=== PATIENT | female | born 1955 | race Caucasian/White ===

== ENCOUNTER 2023-11-24 06:31 | Inpatient (IN) ==
[2023-11-24] MEDS ORDERED: IOPAMIDOL 100 ML BOTTLE IV ONE (06:32)
[2023-11-24] MEDS ORDERED: HYDROmorphone 1 MG/ML SYRINGE IV ONE (06:48)
[2023-11-24] MEDS ORDERED: ONDANSETRON 4 MG/2 ML VIAL IV ONE ×2 (06:48→08:22)
[2023-11-24] MEDS ORDERED: 0.9 % SODIUM CHLORIDE 1,000 ML IV ONE (06:48)
[2023-11-24 07:57] LABS: Basophils # (Auto) 0.01 K/mcL (0.00-0.30); Basophils % (Auto) 0.1 % (0.0-2.0); Eosinophils # (Auto) 0.07 K/mcL (0.00-0.70); Eosinophils % (Auto) 0.6 % (0.0-7.0); Hematocrit 39.5 % (34.1-44.9); Hemoglobin 13.2 g/dL (11.2-15.7); Lymphocytes # (Auto) 1.04 K/mcL (1.50-4.80); Lymphocytes % (Auto) 8.8 % (15.5-49.0); Mean Cell Volume 92.9 fL (80.0-100.0); Mean Corpuscular HGB Conc 33.4 g/dL (31.0-36.0); Mean Platelet Volume 10.2 fL (8.8-12.5); Monocytes # (Auto) 0.76 K/mcL (0.10-0.90); Monocytes % (Auto) 6.4 % (1.0-12.0); Neutrophils % (Auto) 83.8 % (38.0-78.0); Platelet Count 237 K/mcL (140-440); RBC 4.25 M/mcL (3.59-5.38); WBC 11.9 K/mcL (4.5-11.0)
[2023-11-24 08:05] LABS: ALT/SGPT 18 U/L (<40); AST/SGOT 22 U/L (<32); Albumin 3.8 gm/dL (3.2-5.2); Albumin/Globulin Ratio 1.9 (1.0-2.3); Alkaline Phosphatase 58 U/L (39-117); Bilirubin,Total 0.3 mg/dL (0.1-1.0); Blood Urea Nitrogen 26 mg/dL (8-23); Calcium 8.9 mg/dL (8.6-10.4); Carbon Dioxide 26 mmol/L (22-30); Chloride 102 mmol/L (96-108); Glomerular Filtration Rate 65; Glucose 106 mg/dL (70-105)
[2023-11-24] MEDS ORDERED: LACTATED RINGERS 1,000 ML IV ONE (09:26)
[2023-11-24] MEDS ORDERED: HYDROmorphone 0.5 MG/0.5 ML SYRINGE IV ONE ×2 (09:26→11:23)
[2023-11-24] MEDS: LACTATED RINGERS 1,000 ML IV SCH ×2 (12:42→21:50)
[2023-11-24] MEDS ORDERED: NALOXONE HCL 0.4 MG/ML VIAL IV PRN (14:27)
[2023-11-24] MEDS ORDERED: KETOROLAC 30 MG/ML VIAL IV PRN (14:27)
[2023-11-24] MEDS ORDERED: HYDROmorphone 1 MG/ML SYRINGE IV PRN (14:27)
[2023-11-24] MEDS ORDERED: ONDANSETRON 4 MG/2 ML VIAL IV PRN (14:27)
[2023-11-24] MEDS ORDERED: HYDROmorphone 2 MG TABLET PO PRN (14:27)
[2023-11-24] MEDS: 0.9 % SODIUM CHLORIDE 10 ML SYRINGE IV SCH ×2 (14:28→21:39)
[2023-11-24] MEDS: ACETAMINOPHEN 325 MG TABLET PO PRN (19:06)
[2023-11-24] MEDS ORDERED: SUMAtriptan SUCCINATE 50 MG TABLET PO SCH (19:10)
[2023-11-24] MEDS ORDERED: SENNOSIDES/DOCUSATE SODIUM 1 TAB TABLET PO SCH (21:00)
[2023-11-24] MEDS: PROPRANOLOL 40 MG TABLET PO SCH (21:00)
[2023-11-24] MEDS ORDERED: LORazepam 1 MG TABLET PO SCH (22:16)
[2023-11-24] MEDS ORDERED: LORazepam 1 MG TABLET ONE (22:19)
[2023-11-24] MEDS: SENNOSIDES 1 TABLET PO SCH (22:51)
[2023-11-25] MEDS: LACTATED RINGERS 1,000 ML IV SCH ×2 (05:52→14:01)
[2023-11-25] MEDS: 0.9 % SODIUM CHLORIDE 10 ML SYRINGE IV SCH ×3 (05:53→20:12)
[2023-11-25 06:14] LABS: Basophils # (Auto) 0.02 K/mcL (0.00-0.30); Basophils % (Auto) 0.3 % (0.0-2.0); Eosinophils # (Auto) 0.16 K/mcL (0.00-0.70); Eosinophils % (Auto) 2.6 % (0.0-7.0); Hematocrit 37.8 % (34.1-44.9); Hemoglobin 12.5 g/dL (11.2-15.7); Lymphocytes # (Auto) 1.74 K/mcL (1.50-4.80); Lymphocytes % (Auto) 27.9 % (15.5-49.0); Mean Corpuscular HGB Conc 33.1 g/dL (31.0-36.0); Mean Platelet Volume 10.1 fL (8.8-12.5); Monocytes # (Auto) 0.42 K/mcL (0.10-0.90); Monocytes % (Auto) 6.7 % (1.0-12.0); Neutrophils % (Auto) 62.3 % (38.0-78.0); Platelet Count 207 K/mcL (140-440); RBC 4.02 M/mcL (3.59-5.38); Red Cell Distribution Width 13.1 % (11.5-14.5); WBC 6.2 K/mcL (4.5-11.0)
[2023-11-25 06:58] LABS: ALT/SGPT 421 U/L (<40); AST/SGOT 291 U/L (<32); Albumin 3.2 gm/dL (3.2-5.2); Albumin/Globulin Ratio 1.9 (1.0-2.3); Alkaline Phosphatase 105 U/L (39-117); Bilirubin,Total 0.4 mg/dL (0.1-1.0); Blood Urea Nitrogen 12 mg/dL (8-23); Calcium 8.5 mg/dL (8.6-10.4); Carbon Dioxide 24 mmol/L (22-30); Chloride 106 mmol/L (96-108); Globulin 1.7 gm/dL (2.2-3.7); Glomerular Filtration Rate 74; Glucose 78 mg/dL (70-105)
[2023-11-25] MEDS: PANTOPRAZOLE 40 MG VIAL IV SCH (08:35)
[2023-11-25] MEDS: LEVOTHYROXINE 50 MCG TABLET PO SCH (08:35)
[2023-11-25] MEDS: ENOXAPARIN 40 MG/0.4 ML SYRINGE SQ SCH (08:45)
[2023-11-25] MEDS ORDERED: POLYETHYLENE GLYCOL 3350 17 GM PACKET PO PRN (10:36)
[2023-11-25] MEDS ORDERED: MAGNESIUM HYDROXIDE 30 ML ORAL.SUSP PO PRN (10:36)
[2023-11-25] MEDS: ACETAMINOPHEN 325 MG TABLET PO PRN (10:55)
[2023-11-25] MEDS: SENNOSIDES 1 TABLET PO SCH (20:12)
[2023-11-25] MEDS: PROPRANOLOL 40 MG TABLET PO SCH (20:12)
[2023-11-25] MEDS: DOCUSATE SODIUM 100 MG CAPSULE PO SCH (20:12)
[2023-11-25] MEDS ORDERED: LORazepam 1 MG TABLET ONE (20:37)
[2023-11-25] MEDS ORDERED: LORazepam 1 MG TABLET PO PRN (22:39)
[2023-11-26] MEDS: LACTATED RINGERS 1,000 ML IV SCH (03:31)
[2023-11-26] MEDS: 0.9 % SODIUM CHLORIDE 10 ML SYRINGE IV SCH (05:44)
[2023-11-26 06:02] LABS: Basophils # (Auto) 0.02 K/mcL (0.00-0.30); Basophils % (Auto) 0.4 % (0.0-2.0); Eosinophils # (Auto) 0.13 K/mcL (0.00-0.70); Eosinophils % (Auto) 2.5 % (0.0-7.0); Hematocrit 36.8 % (34.1-44.9); Hemoglobin 12.4 g/dL (11.2-15.7); Lymphocytes # (Auto) 1.77 K/mcL (1.50-4.80); Lymphocytes % (Auto) 34.4 % (15.5-49.0); Mean Cell Volume 92.5 fL (80.0-100.0); Mean Corpuscular HGB Conc 33.7 g/dL (31.0-36.0); Mean Platelet Volume 10.2 fL (8.8-12.5); Monocytes # (Auto) 0.48 K/mcL (0.10-0.90); Monocytes % (Auto) 9.3 % (1.0-12.0); Neutrophils % (Auto) 53.2 % (38.0-78.0); Platelet Count 224 K/mcL (140-440); RBC 3.98 M/mcL (3.59-5.38); Red Cell Distribution Width 12.9 % (11.5-14.5); WBC 5.2 K/mcL (4.5-11.0)
[2023-11-26 06:30] LABS: ALT/SGPT 267 U/L (<40); AST/SGOT 105 U/L (<32); Albumin 3.4 gm/dL (3.2-5.2); Albumin/Globulin Ratio 1.7 (1.0-2.3); Alkaline Phosphatase 93 U/L (39-117); Bilirubin,Total 0.3 mg/dL (0.1-1.0); Blood Urea Nitrogen 6 mg/dL (8-23); Carbon Dioxide 25 mmol/L (22-30); Chloride 106 mmol/L (96-108); Glomerular Filtration Rate 87; Glucose 88 mg/dL (70-105)
[2023-11-26] MEDS: LEVOTHYROXINE 50 MCG TABLET PO SCH (07:33)
[2023-11-26] MEDS: PANTOPRAZOLE 40 MG VIAL IV SCH (07:34)
[2023-11-26] MEDS: DOCUSATE SODIUM 100 MG CAPSULE PO SCH (08:23)
[2023-11-26] MEDS: ENOXAPARIN 40 MG/0.4 ML SYRINGE SQ SCH (08:23)
== END 2023-11-26 12:55 | disposition home or self-care (01) | DRG 440 ==
LOC: ED 06:31 → MEDSUR 14:22
PROVIDERS: ADMIT Internal Medicine; ATTEND Internal Medicine

== ENCOUNTER 2024-02-05 04:39 | Inpatient (IN) ==
[2024-02-05] MEDS ORDERED: IOPAMIDOL 100 ML BOTTLE IV ONE (04:40)
[2024-02-05] MEDS: 0.9 % SODIUM CHLORIDE 1,000 ML IV ONE (05:00)
[2024-02-05] MEDS: ONDANSETRON 4 MG/2 ML VIAL IV ONE (05:10)
[2024-02-05] MEDS: HYDROmorphone 1 MG/ML SYRINGE IV ONE ×2 (05:10→05:51)
[2024-02-05 05:14] LABS: Basophils # (Auto) 0.03 K/mcL (0.00-0.30); Basophils % (Auto) 0.4 % (0.0-2.0); Eosinophils # (Auto) 0.14 K/mcL (0.00-0.70); Eosinophils % (Auto) 1.8 % (0.0-7.0); Hematocrit 36.9 % (34.1-44.9); Hemoglobin 12.2 g/dL (11.2-15.7); Lymphocytes # (Auto) 2.21 K/mcL (1.50-4.80); Lymphocytes % (Auto) 28.3 % (15.5-49.0); Mean Cell Volume 94.9 fL (80.0-100.0); Mean Corpuscular HGB Conc 33.1 g/dL (31.0-36.0); Mean Platelet Volume 9.8 fL (8.8-12.5); Monocytes # (Auto) 0.64 K/mcL (0.10-0.90); Monocytes % (Auto) 8.2 % (1.0-12.0); Neutrophils % (Auto) 61.2 % (38.0-78.0); Platelet Count 225 K/mcL (140-440); RBC 3.89 M/mcL (3.59-5.38); Red Cell Distribution Width 13.1 % (11.5-14.5); WBC 7.8 K/mcL (4.5-11.0)
[2024-02-05 05:38] LABS: ALT/SGPT 37 U/L (<40); AST/SGOT 58 U/L (<32); Albumin 3.7 gm/dL (3.2-5.2); Albumin/Globulin Ratio 1.9 (1.0-2.3); Alkaline Phosphatase 64 U/L (39-117); Bilirubin,Total < 0.2 mg/dL (0.1-1.0); Blood Urea Nitrogen 20 mg/dL (8-23); Calcium 8.7 mg/dL (8.6-10.4); Carbon Dioxide 26 mmol/L (22-30); Chloride 101 mmol/L (96-108); Globulin 1.9 gm/dL (2.2-3.7); Glomerular Filtration Rate 64; Glucose 104 mg/dL (70-105)
[2024-02-05] MEDS ORDERED: MAGNESIUM SULFATE 2 GM/50 ML BAG IV PRN (10:45)
[2024-02-05] MEDS ORDERED: IPRATROPIUM/ALBUTEROL 3 ML AMPUL.NEB NEB PRN (10:45)
[2024-02-05] MEDS ORDERED: POTASSIUM CHLORIDE 40 MEQ in DEXTROSE 5% IN WATER 500 ML IV PRN (10:45)
[2024-02-05] MEDS ORDERED: HYDROcodone/APAP 5/325MG TABLET PO PRN (10:45)
[2024-02-05] MEDS ORDERED: POTASSIUM CHLORIDE 20 MEQ TABLET PO PRN ×2 (10:45)
[2024-02-05] MEDS: 0.9 % SODIUM CHLORIDE 1,000 ML IV SCH (11:36)
[2024-02-05] MEDS: ONDANSETRON 4 MG/2 ML VIAL IV PRN (11:44)
[2024-02-05] MEDS: HYDROmorphone 0.5 MG/0.5 ML SYRINGE IV PRN (11:45)
[2024-02-05] MEDS: SCOPOLAMINE 1 PATCH PATCH TOPICAL SCH (12:05)
[2024-02-05 12:08] LABS: Appearance,Urine Clear (Clear); Bilirubin,Urine Negative (Negative); Color,Urine Yellow; Culture Indicated,Urine No; Glucose,Urine (UA) Negative (Negative); Ketones,Urine Negative (Negative); Leukocyte Esterase,Urine Negative /uL (Negative); Nitrate,Urine Negative (Negative); Protein,Urine Negative (Negative); Urine Blood Negative ery/mcL (Negative); Urine RBC 0 /hpf (0-3); Urine Squamous Epithelial Cell 0 /hpf (0-4); Urine WBC 0 /hpf (0-4); Urobilinogen,Urine Normal
[2024-02-05] MEDS: 0.9 % SODIUM CHLORIDE 10 ML SYRINGE IV SCH (13:52)
[2024-02-05] MEDS: SUMAtriptan SUCCINATE 50 MG TABLET PO ONE (14:16)
[2024-02-05] MEDS: PROMETHAZINE 25 MG TABLET PO PRN (16:41)
[2024-02-05] MEDS: SUMAtriptan SUCCINATE 50 MG TABLET PO PRN (18:42)
[2024-02-05] MEDS: DOCUSATE SODIUM 100 MG CAPSULE PO SCH (21:06)
[2024-02-06 06:12] LABS: Basophils # (Auto) 0.03 K/mcL (0.00-0.30); Basophils % (Auto) 0.7 % (0.0-2.0); Eosinophils # (Auto) 0.08 K/mcL (0.00-0.70); Eosinophils % (Auto) 1.9 % (0.0-7.0); Hematocrit 42.8 % (34.1-44.9); Hemoglobin 13.5 g/dL (11.2-15.7); Lymphocytes # (Auto) 1.24 K/mcL (1.50-4.80); Lymphocytes % (Auto) 28.9 % (15.5-49.0); Mean Cell Volume 100.2 fL (80.0-100.0); Mean Corpuscular HGB Conc 31.5 g/dL (31.0-36.0); Mean Platelet Volume 10.1 fL (8.8-12.5); Monocytes % (Auto) 9.3 % (1.0-12.0); Platelet Count 212 K/mcL (140-440); RBC 4.27 M/mcL (3.59-5.38); Red Cell Distribution Width 13.4 % (11.5-14.5); WBC 4.3 K/mcL (4.5-11.0)
[2024-02-06 06:58] LABS: ALT/SGPT 838 U/L (<40); AST/SGOT 598 U/L (<32); Albumin 3.5 gm/dL (3.2-5.2); Albumin/Globulin Ratio 1.5 (1.0-2.3); Alkaline Phosphatase 167 U/L (39-117); Bilirubin,Direct < 0.2 mg/dL (0-0.3); Bilirubin,Total 0.4 mg/dL (0.1-1.0); Blood Urea Nitrogen 10 mg/dL (8-23); Calcium 8.8 mg/dL (8.6-10.4); Carbon Dioxide 19 mmol/L (22-30); Chloride 111 mmol/L (96-108); Globulin 2.3 gm/dL (2.2-3.7); Glomerular Filtration Rate 87; Glucose 81 mg/dL (70-105); Lactate Dehydrogenase 379 U/L (135-225); Phosphorous 4.2 mg/dL (2.5-4.5); Triglycerides 57 mg/dL (<150); Uric Acid 3.7 mg/dL (2.5-8.0)
[2024-02-06] MEDS: PANTOPRAZOLE 40 MG VIAL IV SCH (07:28)
[2024-02-06] MEDS: ACETAMINOPHEN 325 MG TABLET PO PRN (07:33)
[2024-02-06] MEDS: ENOXAPARIN 40 MG/0.4 ML SYRINGE SQ SCH (08:48)
[2024-02-06] MEDS: LACTATED RINGERS 1,000 ML IV SCH (13:45)
[2024-02-06] MEDS: SENNOSIDES 1 TABLET PO PRN (13:45)
[2024-02-06] MEDS ORDERED: SUMATRIPTAN SUCCINATE 100 MG PO PRN (18:10)
[2024-02-06] MEDS ORDERED: ALBUTEROL SULFATE 60 PUFF INHALER INH PRN (21:22)
[2024-02-06] MEDS: PROPRANOLOL 40 MG TABLET PO SCH (21:28)
[2024-02-06] MEDS: traZODone HCL 100 MG TABLET PO SCH (21:28)
[2024-02-06] MEDS: LORazepam 1 MG TABLET PO PRN (22:23)
[2024-02-07] MEDS: LORazepam 1 MG TABLET ONE (00:21)
[2024-02-07] MEDS ORDERED: POLYETHYLENE GLYCOL 3350 17 GM PACKET PO PRN (07:39)
[2024-02-07] MEDS: LACTATED RINGERS 1,000 ML IV SCH (07:53)
[2024-02-07 08:11] LABS: Basophils # (Auto) 0.03 K/mcL (0.00-0.30); Basophils % (Auto) 0.7 % (0.0-2.0); Eosinophils # (Auto) 0.12 K/mcL (0.00-0.70); Eosinophils % (Auto) 2.8 % (0.0-7.0); Hematocrit 36.3 % (34.1-44.9); Hemoglobin 12.2 g/dL (11.2-15.7); Lymphocytes # (Auto) 1.85 K/mcL (1.50-4.80); Lymphocytes % (Auto) 42.5 % (15.5-49.0); Mean Corpuscular HGB Conc 33.6 g/dL (31.0-36.0); Mean Platelet Volume 9.8 fL (8.8-12.5); Monocytes # (Auto) 0.57 K/mcL (0.10-0.90); Monocytes % (Auto) 13.1 % (1.0-12.0); Neutrophils % (Auto) 40.9 % (38.0-78.0); Platelet Count 228 K/mcL (140-440); RBC 3.86 M/mcL (3.59-5.38); Red Cell Distribution Width 13.3 % (11.5-14.5); WBC 4.4 K/mcL (4.5-11.0)
[2024-02-07 08:21] LABS: ALT/SGPT 431 U/L (<40); AST/SGOT 153 U/L (<32); Albumin 3.4 gm/dL (3.2-5.2); Albumin/Globulin Ratio 1.9 (1.0-2.3); Alkaline Phosphatase 122 U/L (39-117); Bilirubin,Direct < 0.2 mg/dL (0-0.3); Bilirubin,Total 0.4 mg/dL (0.1-1.0); Blood Urea Nitrogen 7 mg/dL (8-23); C-Reactive Protein 0.98 mg/dL (0.03-0.80); Calcium 9.3 mg/dL (8.6-10.4); Carbon Dioxide 27 mmol/L (22-30); Chloride 106 mmol/L (96-108); Globulin 1.8 gm/dL (2.2-3.7); Glomerular Filtration Rate 87; Glucose 95 mg/dL (70-105); Lactate Dehydrogenase 151 U/L (135-225); Phosphorous 3.4 mg/dL (2.5-4.5); Triglycerides 71 mg/dL (<150); Uric Acid 3.3 mg/dL (2.5-8.0)
[2024-02-07] MEDS: PRAMIPEXOLE 0.25 MG TABLET PO SCH (08:24)
[2024-02-07] MEDS: POLYETHYLENE GLYCOL 3350 17 GM PACKET PO PRN (08:24)
[2024-02-07] MEDS: OMEPRAZOLE 20 MG CAPSULE PO SCH (08:25)
[2024-02-07] MEDS: LEVOTHYROXINE 50 MCG TABLET PO SCH (08:25)
[2024-02-07] MEDS ORDERED: ATORVASTATIN 10 MG TABLET PO SCH (21:00)
== END 2024-02-07 10:30 | disposition home or self-care (01) | DRG 440 ==
LOC: ED 04:39 → ICU 11:00
PROVIDERS: ADMIT Internal Medicine; ATTEND Internal Medicine

== ENCOUNTER 2024-05-30 14:17 | Inpatient (IN) ==
[2024-05-30] MEDS ORDERED: IOPAMIDOL 100 ML BOTTLE IV ONE (14:18)
[2024-05-30] MEDS: HYDROmorphone 1 MG/ML SYRINGE IV ONE ×2 (15:14→16:33)
[2024-05-30] MEDS: ACETAMINOPHEN 1,000 MG/100 ML BAG IV ONE (15:14)
[2024-05-30] MEDS: ONDANSETRON 4 MG/2 ML VIAL IV ONE ×2 (15:15→17:57)
[2024-05-30 15:34] LABS: Basophils # (Auto) 0.03 K/mcL (0.00-0.30); Basophils % (Auto) 0.4 % (0.0-2.0); Eosinophils # (Auto) 0.21 K/mcL (0.00-0.70); Eosinophils % (Auto) 2.5 % (0.0-7.0); Hematocrit 40.1 % (34.1-44.9); Hemoglobin 13.6 g/dL (11.2-15.7); Lymphocytes # (Auto) 2.08 K/mcL (1.50-4.80); Lymphocytes % (Auto) 24.4 % (15.5-49.0); Mean Cell Volume 91.3 fL (80.0-100.0); Mean Corpuscular HGB Conc 33.9 g/dL (31.0-36.0); Mean Platelet Volume 9.8 fL (8.8-12.5); Monocytes # (Auto) 0.94 K/mcL (0.10-0.90); Neutrophils % (Auto) 61.6 % (38.0-78.0); Platelet Count 315 K/mcL (140-440); RBC 4.39 M/mcL (3.59-5.38); Red Cell Distribution Width 12.2 % (11.5-14.5); WBC 8.5 K/mcL (4.5-11.0)
[2024-05-30 15:46] LABS: ALT/SGPT 21 U/L (<40); AST/SGOT 23 U/L (<32); Albumin 4.1 gm/dL (3.2-5.2); Albumin/Globulin Ratio 2.1 (1.0-2.3); Alkaline Phosphatase 98 U/L (39-117); Bilirubin,Total < 0.2 mg/dL (0.1-1.0); Blood Urea Nitrogen 23 mg/dL (8-23); Carbon Dioxide 23 mmol/L (22-30); Chloride 99 mmol/L (96-108); Glomerular Filtration Rate 64; Glucose 112 mg/dL (70-105); Potassium 4.4 mmol/L (3.3-5.1); Sodium 135 mmol/L (133-145)
[2024-05-30] MEDS: KETOROLAC 15 MG/ML VIAL IV ONE (16:34)
[2024-05-30] MEDS: 0.9 % SODIUM CHLORIDE 1,000 ML IV ONE (16:36)
[2024-05-30] MEDS: diphenhydrAMINE 50 MG/ML VIAL IV ONE (17:57)
[2024-05-30] MEDS ORDERED: KETOROLAC 15 MG/ML VIAL IV PRN (19:09)
[2024-05-30] MEDS ORDERED: LORazepam 2 MG/ML VIAL IV PRN (19:09)
[2024-05-30] MEDS ORDERED: NITROGLYCERIN 0.4 MG TAB.SUBL SL PRN (20:11)
[2024-05-30] MEDS ORDERED: SENNOSIDES 1 TABLET PO PRN (20:11)
[2024-05-30] MEDS: LACTATED RINGERS 1,000 ML IV SCH (20:30)
[2024-05-30] MEDS: HYDROmorphone 1 MG/ML SYRINGE IV PRN (20:30)
[2024-05-30] MEDS: PROPRANOLOL 40 MG TABLET PO SCH (21:43)
[2024-05-30] MEDS: 0.9 % SODIUM CHLORIDE 10 ML SYRINGE IV SCH (21:44)
[2024-05-31 06:36] LABS: ALT/SGPT 92 U/L (<40); AST/SGOT 97 U/L (<32); Albumin 3.9 gm/dL (3.2-5.2); Albumin/Globulin Ratio 2.3 (1.0-2.3); Alkaline Phosphatase 100 U/L (39-117); Bilirubin,Direct < 0.2 mg/dL (0-0.3); Bilirubin,Total 0.4 mg/dL (0.1-1.0); Blood Urea Nitrogen 15 mg/dL (8-23); Carbon Dioxide 26 mmol/L (22-30); Chloride 103 mmol/L (96-108); Globulin 1.7 gm/dL (2.2-3.7); Glomerular Filtration Rate 57; Glucose 87 mg/dL (70-105); Lactate Dehydrogenase 185 U/L (135-225); Phosphorous 4.3 mg/dL (2.5-4.5); Potassium 4.4 mmol/L (3.3-5.1); Sodium 137 mmol/L (133-145); Triglycerides 103 mg/dL (<150); Uric Acid 3.8 mg/dL (2.5-8.0)
[2024-05-31 07:14] LABS: Basophils # (Auto) 0.05 K/mcL (0.00-0.30); Basophils % (Auto) 0.7 % (0.0-2.0); Eosinophils # (Auto) 0.25 K/mcL (0.00-0.70); Eosinophils % (Auto) 3.6 % (0.0-7.0); Hematocrit 37.4 % (34.1-44.9); Hemoglobin 12.6 g/dL (11.2-15.7); Lymphocytes # (Auto) 2.58 K/mcL (1.50-4.80); Lymphocytes % (Auto) 36.9 % (15.5-49.0); Mean Corpuscular HGB Conc 33.7 g/dL (31.0-36.0); Mean Platelet Volume 9.9 fL (8.8-12.5); Monocytes # (Auto) 0.74 K/mcL (0.10-0.90); Monocytes % (Auto) 10.6 % (1.0-12.0); Neutrophils % (Auto) 48.1 % (38.0-78.0); Platelet Count 268 K/mcL (140-440); RBC 3.98 M/mcL (3.59-5.38); Red Cell Distribution Width 12.5 % (11.5-14.5)
[2024-05-31] MEDS: ENOXAPARIN 40 MG/0.4 ML SYRINGE SQ SCH (08:03)
[2024-05-31] MEDS: LEVOTHYROXINE 50 MCG TABLET PO STA (08:03)
[2024-05-31] MEDS: OMEPRAZOLE 20 MG CAPSULE PO SCH (08:03)
[2024-05-31] MEDS: diphenhydrAMINE 50 MG/ML VIAL IV ONE (09:36)
[2024-05-31] MEDS: ACETAMINOPHEN 325 MG TABLET PO PRN (09:36)
[2024-05-31] MEDS: ASCORBIC ACID 500 MG TABLET PO SCH (13:26)
[2024-05-31] MEDS: ONDANSETRON 4 MG/2 ML VIAL IV PRN (13:26)
[2024-05-31] MEDS: POLYETHYLENE GLYCOL 3350 17 GM PACKET PO PRN (13:26)
[2024-05-31] MEDS ORDERED: ALBUTEROL SULFATE 60 PUFF INHALER INH PRN (13:42)
[2024-05-31] MEDS ORDERED: SUMAtriptan SUCCINATE 50 MG TABLET PO PRN (13:44)
[2024-05-31] MEDS: traZODone HCL 100 MG TABLET PO SCH (21:21)
[2024-05-31] MEDS: VIT A,C & E/LUTEIN/MINERALS TABLET PO SCH (21:21)
[2024-05-31] MEDS: PRAMIPEXOLE 0.25 MG TABLET PO SCH (21:22)
[2024-06-01 06:35] LABS: Basophils # (Auto) 0.03 K/mcL (0.00-0.30); Basophils % (Auto) 0.6 % (0.0-2.0); Eosinophils # (Auto) 0.23 K/mcL (0.00-0.70); Eosinophils % (Auto) 4.6 % (0.0-7.0); Hematocrit 39.2 % (34.1-44.9); Hemoglobin 12.9 g/dL (11.2-15.7); Lymphocytes # (Auto) 2.18 K/mcL (1.50-4.80); Mean Cell Volume 95.1 fL (80.0-100.0); Mean Corpuscular HGB Conc 32.9 g/dL (31.0-36.0); Mean Platelet Volume 10.5 fL (8.8-12.5); Monocytes # (Auto) 0.58 K/mcL (0.10-0.90); Monocytes % (Auto) 11.7 % (1.0-12.0); Neutrophils % (Auto) 38.9 % (38.0-78.0); Platelet Count 272 K/mcL (140-440); RBC 4.12 M/mcL (3.59-5.38); Red Cell Distribution Width 12.5 % (11.5-14.5)
[2024-06-01 06:54] LABS: ALT/SGPT 63 U/L (<40); AST/SGOT 49 U/L (<32); Albumin 3.8 gm/dL (3.2-5.2); Albumin/Globulin Ratio 1.9 (1.0-2.3); Alkaline Phosphatase 100 U/L (39-117); Bilirubin,Direct < 0.2 mg/dL (0-0.3); Bilirubin,Total 0.3 mg/dL (0.1-1.0); Blood Urea Nitrogen 8 mg/dL (8-23); Calcium 9.2 mg/dL (8.6-10.4); Carbon Dioxide 24 mmol/L (22-30); Chloride 104 mmol/L (96-108); Glomerular Filtration Rate 64; Glucose 90 mg/dL (70-105); Lactate Dehydrogenase 223 U/L (135-225); Potassium 4.5 mmol/L (3.3-5.1); Sodium 139 mmol/L (133-145); Triglycerides 132 mg/dL (<150); Uric Acid 3.5 mg/dL (2.5-8.0)
[2024-06-01] MEDS: LEVOTHYROXINE 50 MCG TABLET PO SCH (07:18)
[2024-06-01] MEDS: ATORVASTATIN 10 MG TABLET PO SCH (08:51)
[2024-06-01] MEDS: CYANOCOBALAMIN (VITAMIN B-12) 500 MCG TABLET PO SCH (08:51)
[2024-06-01] MEDS: VITAMIN D3 25 MCG TABLET PO SCH (08:51)
[2024-06-01] MEDS: ASCORBIC ACID 500 MG TABLET PO SCH (08:51)
[2024-06-01] MEDS ORDERED: VIT C E ZN COPPR LUTEIN ZEAXAN PO SCH (09:00)
[2024-06-01] MEDS ORDERED: [UNRECOGNIZED DRUG - OTHER] PO SCH (09:00)
== END 2024-06-01 12:03 | disposition home or self-care (01) | DRG 440 ==
LOC: ED 14:17 → MEDSUR 20:10
PROVIDERS: ADMIT Student in an Organized Health Care Education/Training Program; ATTEND Student in an Organized Health Care Education/Training Program

== ENCOUNTER 2024-08-06 13:13 | Inpatient (IN) ==
[2024-08-06 14:06] LABS: Basophils # (Auto) 0.01 K/mcL (0.00-0.30); Basophils % (Auto) 0.1 % (0.0-2.0); Eosinophils # (Auto) 0.06 K/mcL (0.00-0.70); Eosinophils % (Auto) 0.9 % (0.0-7.0); Hematocrit 38.7 % (34.1-44.9); Hemoglobin 12.7 g/dL (11.2-15.7); Lymphocytes # (Auto) 1.37 K/mcL (1.50-4.80); Lymphocytes % (Auto) 19.8 % (15.5-49.0); Mean Cell Volume 94.6 fL (80.0-100.0); Mean Corpuscular HGB Conc 32.8 g/dL (31.0-36.0); Mean Platelet Volume 9.8 fL (8.8-12.5); Monocytes # (Auto) 0.57 K/mcL (0.10-0.90); Monocytes % (Auto) 8.2 % (1.0-12.0); Platelet Count 265 K/mcL (140-440); RBC 4.09 M/mcL (3.59-5.38); Red Cell Distribution Width 13.4 % (11.5-14.5); WBC 6.9 K/mcL (4.5-11.0)
[2024-08-06] MEDS: ONDANSETRON 4 MG ODT TABLET SL ONE (14:25)
[2024-08-06] MEDS: KETOROLAC 30 MG/ML VIAL IM ONE (14:30)
[2024-08-06] MEDS: HYDROmorphone 2 MG TABLET PO ONE (14:31)
[2024-08-06] MEDS: HYDROmorphone 1 MG/ML SYRINGE IV ONE ×2 (14:43→18:00)
[2024-08-06] MEDS: KETOROLAC 15 MG/ML VIAL IV ONE (14:43)
[2024-08-06 15:44] LABS: ALT/SGPT 800 U/L (<40); AST/SGOT 927 U/L (<32); Albumin/Globulin Ratio 1.8 (1.0-2.3); Alkaline Phosphatase 127 U/L (39-117); Bilirubin,Total 0.5 mg/dL (0.1-1.0); Blood Urea Nitrogen 17 mg/dL (8-23); Calcium 8.7 mg/dL (8.6-10.4); Carbon Dioxide 25 mmol/L (22-30); Chloride 102 mmol/L (96-108); Globulin 2.2 gm/dL (2.2-3.7); Glomerular Filtration Rate 64; Glucose 84 mg/dL (70-105); Potassium 4.5 mmol/L (3.3-5.1); Sodium 139 mmol/L (133-145)
[2024-08-06] MEDS: ACETAMINOPHEN 325 MG TABLET PO ONE (16:33)
[2024-08-06] MEDS: ONDANSETRON 4 MG/2 ML VIAL IV ONE (17:07)
[2024-08-06] MEDS: diphenhydrAMINE 50 MG/ML VIAL IV ONE (18:49)
[2024-08-06] MEDS ORDERED: ONDANSETRON 4 MG/2 ML VIAL IV PRN (20:01)
[2024-08-06] MEDS ORDERED: HYDROmorphone 0.5 MG/0.5 ML SYRINGE IV PRN (20:01)
[2024-08-06] MEDS: 0.9 % SODIUM CHLORIDE 1,000 ML IV SCH (20:43)
[2024-08-06] MEDS: 0.9 % SODIUM CHLORIDE 10 ML SYRINGE IV SCH (20:53)
[2024-08-06 21:15] LABS: C-Reactive Protein 6.35 mg/dL (0.03-0.80)
[2024-08-06] MEDS ORDERED: SUMAtriptan SUCCINATE 50 MG TABLET PO PRN (21:19)
[2024-08-06] MEDS ORDERED: LORazepam 1 MG TABLET PO PRN (21:20)
[2024-08-06] MEDS: DESIPRAMINE 25 MG TABLET PO SCH (22:45)
[2024-08-06] MEDS: traZODone HCL 100 MG TABLET PO SCH (22:46)
[2024-08-06] MEDS: PROPRANOLOL 40 MG TABLET PO SCH (22:46)
[2024-08-06] MEDS: PRAMIPEXOLE 0.25 MG TABLET PO SCH (22:46)
[2024-08-07] MEDS: KETOROLAC 15 MG/ML VIAL IV PRN (02:30)
[2024-08-07 06:41] LABS: ALT/SGPT 545 U/L (<40); AST/SGOT 443 U/L (<32); Albumin 3.4 gm/dL (3.2-5.2); Albumin/Globulin Ratio 1.8 (1.0-2.3); Alkaline Phosphatase 143 U/L (39-117); Bilirubin,Direct 0.2 mg/dL (<0.3); Bilirubin,Total 0.5 mg/dL (0.1-1.0); Blood Urea Nitrogen 11 mg/dL (8-23); Calcium 7.8 mg/dL (8.6-10.4); Carbon Dioxide 26 mmol/L (22-30); Chloride 103 mmol/L (96-108); Globulin 1.9 gm/dL (2.2-3.7); Glomerular Filtration Rate 74; Glucose 81 mg/dL (70-105); Lactate Dehydrogenase 225 U/L (135-225); Phosphorous 3.9 mg/dL (2.5-4.5); Potassium 3.8 mmol/L (3.3-5.1); Sodium 138 mmol/L (133-145); Triglycerides 53 mg/dL (<150)
[2024-08-07] MEDS: ACETAMINOPHEN 325 MG TABLET PO PRN (08:12)
[2024-08-07] MEDS: ENOXAPARIN 40 MG/0.4 ML SYRINGE SQ SCH (08:13)
[2024-08-07] MEDS: PSEUDOEPHEDRINE 30 MG TABLET PO PRN (10:03)
[2024-08-07] MEDS: 0.9 % SODIUM CHLORIDE 1,000 ML IV SCH (10:04)
[2024-08-07] MEDS ORDERED: HYDROmorphone 2 MG TABLET PO PRN (12:06)
[2024-08-07] MEDS ORDERED: LORazepam 1 MG TABLET PO PRN (12:10)
[2024-08-07] MEDS ORDERED: SUMAtriptan SUCCINATE 50 MG TABLET PO PRN (12:15)
[2024-08-07] MEDS ORDERED: PRAMIPEXOLE 0.25 MG TABLET PO SCH (21:00)
[2024-08-07] MEDS: traZODone HCL 100 MG TABLET PO SCH (21:07)
[2024-08-07] MEDS: PROPRANOLOL 40 MG TABLET PO SCH (21:08)
[2024-08-07] MEDS: DESIPRAMINE 25 MG TABLET PO SCH (21:08)
[2024-08-07] MEDS: PRAMIPEXOLE 0.25 MG TABLET PO SCH (21:08)
[2024-08-08 06:26] LABS: ALT/SGPT 335 U/L (<40); AST/SGOT 142 U/L (<32); Albumin 3.3 gm/dL (3.2-5.2); Albumin/Globulin Ratio 1.7 (1.0-2.3); Alkaline Phosphatase 120 U/L (39-117); Bilirubin,Direct < 0.2 mg/dL (0-0.3); Bilirubin,Total 0.2 mg/dL (0.1-1.0); Blood Urea Nitrogen 9 mg/dL (8-23); Calcium 8.4 mg/dL (8.6-10.4); Carbon Dioxide 26 mmol/L (22-30); Chloride 108 mmol/L (96-108); Globulin 1.9 gm/dL (2.2-3.7); Glomerular Filtration Rate 87; Glucose 104 mg/dL (70-105); Lactate Dehydrogenase 143 U/L (135-225); Sodium 142 mmol/L (133-145); Triglycerides 81 mg/dL (<150); Uric Acid 3.4 mg/dL (2.5-8.0)
[2024-08-08] MEDS: OMEPRAZOLE 20 MG CAPSULE PO SCH (07:19)
[2024-08-08] MEDS: LEVOTHYROXINE 50 MCG TABLET PO SCH (07:19)
[2024-08-08] MEDS: POLYETHYLENE GLYCOL 3350 17 GM PACKET PO PRN (08:18)
[2024-08-08] MEDS: SIMVASTATIN 20 MG TABLET PO SCH (08:18)
[2024-08-09] MEDS ORDERED: OMEPRAZOLE 20 MG CAPSULE PO SCH (07:30)
== END 2024-08-08 13:23 | disposition home or self-care (01) | DRG 440 ==
LOC: ED 13:13 → MEDSUR 19:59
PROVIDERS: ADMIT Internal Medicine; ATTEND Internal Medicine

== ENCOUNTER 2024-10-26 14:56 | Inpatient (IN) ==
[2024-10-26] MEDS: ONDANSETRON 4 MG/2 ML VIAL IV ONE (15:45)
[2024-10-26] MEDS: PROMETHAZINE 25 MG SUPP.RECT PR ONE (15:55)
[2024-10-26 15:58] LABS: Basophils # (Auto) 0.01 K/mcL (0.00-0.30); Basophils % (Auto) 0.1 % (0.0-2.0); Eosinophils # (Auto) 0.04 K/mcL (0.00-0.70); Eosinophils % (Auto) 0.5 % (0.0-7.0); Hematocrit 40.4 % (34.1-44.9); Hemoglobin 13.6 g/dL (11.2-15.7); Lymphocytes # (Auto) 1.21 K/mcL (1.50-4.80); Lymphocytes % (Auto) 15.5 % (15.5-49.0); Mean Cell Volume 93.7 fL (80.0-100.0); Mean Corpuscular HGB Conc 33.7 g/dL (31.0-36.0); Mean Platelet Volume 9.7 fL (8.8-12.5); Monocytes # (Auto) 0.51 K/mcL (0.10-0.90); Monocytes % (Auto) 6.5 % (1.0-12.0); Neutrophils % (Auto) 77.3 % (38.0-78.0); Platelet Count 224 K/mcL (140-440); RBC 4.31 M/mcL (3.59-5.38); Red Cell Distribution Width 12.7 % (11.5-14.5); WBC 7.8 K/mcL (4.5-11.0)
[2024-10-26] MEDS: HYDROmorphone 1 MG/ML SYRINGE IM ONE (16:06)
[2024-10-26 18:21] LABS: ALT/SGPT 645 U/L (<40); AST/SGOT 1221 U/L (<32); Albumin 3.8 gm/dL (3.2-5.2); Albumin/Globulin Ratio 1.8 (1.0-2.3); Alkaline Phosphatase 101 U/L (39-117); Bilirubin,Total 0.5 mg/dL (0.1-1.0); Blood Urea Nitrogen 18 mg/dL (8-23); Carbon Dioxide 26 mmol/L (22-30); Chloride 101 mmol/L (96-108); Globulin 2.1 gm/dL (2.2-3.7); Glomerular Filtration Rate 45; Glucose 101 mg/dL (70-105); Potassium 4.9 mmol/L (3.3-5.1); Sodium 137 mmol/L (133-145)
[2024-10-26] MEDS: HYDROmorphone 0.5 MG/0.5 ML SYRINGE IV ONE (18:31)
[2024-10-26] MEDS: 0.9 % SODIUM CHLORIDE 1,000 ML IV SCH ×2 (18:32→22:06)
[2024-10-26 18:45] LABS: Appearance,Urine Clear (Clear); Bilirubin,Urine Negative (Negative); Color,Urine Yellow; Glucose,Urine (UA) Negative (Negative); Ketones,Urine Negative (Negative); Leukocyte Esterase,Urine Negative /uL (Negative); Mucus,Urine Mod /hpf; Nitrate,Urine Negative (Negative); PH,Urine 6.5 (5.0-9.0); Protein,Urine 30 mg/dL (Negative); Specific Gravity,Urine 1.015 (1.000-1.035); Urine Blood Negative ery/mcL (Negative); Urine Hyaline Cast 6 /lph (0-2); Urine RBC 0 /hpf (0-3); Urine Squamous Epithelial Cell 3 /hpf (0-4); Urine WBC 2 /hpf (0-4); Urobilinogen,Urine Normal
[2024-10-26] MEDS ORDERED: LORazepam 1 MG TABLET PO PRN (21:18)
[2024-10-26] MEDS ORDERED: ZOLPIDEM 5 MG TABLET PO PRN (21:18)
[2024-10-26] MEDS ORDERED: ONDANSETRON 4 MG/2 ML VIAL IV PRN (21:18)
[2024-10-26] MEDS ORDERED: DOCUSATE SODIUM 100 MG CAPSULE PO PRN (21:18)
[2024-10-26] MEDS ORDERED: HYDROmorphone 1 MG/ML SYRINGE IV PRN (21:18)
[2024-10-26] MEDS: LACTATED RINGERS 1,000 ML IV SCH (21:53)
[2024-10-26] MEDS: SENNOSIDES 1 TABLET PO PRN (22:05)
[2024-10-26] MEDS: 0.9 % SODIUM CHLORIDE 10 ML SYRINGE IV SCH (22:05)
[2024-10-26 23:31] LABS: ALT/SGPT 1168 U/L (<40); AST/SGOT 1959 U/L (<32); Albumin 3.6 gm/dL (3.2-5.2); Alkaline Phosphatase 153 U/L (39-117); Blood Urea Nitrogen 17 mg/dL (8-23); Calcium 8.7 mg/dL (8.6-10.4); Carbon Dioxide 26 mmol/L (22-30); Chloride 103 mmol/L (96-108); Globulin 1.8 gm/dL (2.2-3.7); Glomerular Filtration Rate 50; Glucose 86 mg/dL (70-105); Potassium 4.6 mmol/L (3.3-5.1); Sodium 135 mmol/L (133-145)
[2024-10-27 05:43] LABS: Hematocrit 36.2 % (34.1-44.9); Hemoglobin 11.8 g/dL (11.2-15.7); Mean Corpuscular HGB Conc 32.6 g/dL (31.0-36.0); Platelet Count 198 K/mcL (140-440); RBC 3.77 M/mcL (3.59-5.38); Red Cell Distribution Width 12.7 % (11.5-14.5); WBC 5.5 K/mcL (4.5-11.0)
[2024-10-27 06:19] LABS: ALT/SGPT 907 U/L (<40); AST/SGOT 987 U/L (<32); Albumin 3.2 gm/dL (3.2-5.2); Albumin/Globulin Ratio 1.9 (1.0-2.3); Alkaline Phosphatase 162 U/L (39-117); Bilirubin,Total 0.9 mg/dL (0.1-1.0); Blood Urea Nitrogen 12 mg/dL (8-23); Calcium 8.2 mg/dL (8.6-10.4); Carbon Dioxide 23 mmol/L (22-30); Chloride 103 mmol/L (96-108); Globulin 1.7 gm/dL (2.2-3.7); Glomerular Filtration Rate 64; Glucose 102 mg/dL (70-105); Potassium 4.5 mmol/L (3.3-5.1); Sodium 133 mmol/L (133-145)
[2024-10-27] MEDS ORDERED: MEPERIDINE 50 MG/ML IM PRN (08:26)
[2024-10-27] MEDS ORDERED: ALBUTEROL SULFATE 60 PUFF INHALER INH PRN (08:29)
[2024-10-27] MEDS ORDERED: LORazepam 1 MG TABLET PO PRN (08:30)
[2024-10-27] MEDS ORDERED: ONDANSETRON 4 MG ODT TABLET SL PRN (08:32)
[2024-10-27] MEDS: 0.9 % SODIUM CHLORIDE 1,000 ML IV SCH (08:45)
[2024-10-27] MEDS: oxyCODONE IR 5 MG TABLET PO PRN (08:46)
[2024-10-27] MEDS: ENOXAPARIN 40 MG/0.4 ML SYRINGE SQ SCH (08:46)
[2024-10-27] MEDS: LEVOTHYROXINE 50 MCG TABLET PO SCH (08:46)
[2024-10-27] MEDS: diphenhydrAMINE 25 MG CAPSULE PO PRN (08:46)
[2024-10-27] MEDS ORDERED: KETAMINE NAS PRN (08:47)
[2024-10-27 08:54] LABS: Eosinophils % (Manual) 1 % (0-7); Lymphocytes % 17 % (15-49); Monocytes % (Manual) 4 % (1-12); Platelet Estimate NORMAL (Normal); RBC Morphology NORMAL (Normal); Segmented Neutrophils % 78 % (38-78)
[2024-10-27] MEDS ORDERED: PROPRANOLOL 40 MG TABLET PO SCH (09:00)
[2024-10-27] MEDS ORDERED: [UNRECOGNIZED DRUG - OTHER] PO SCH (09:00)
[2024-10-27] MEDS ORDERED: VIT C E ZN COPPR LUTEIN ZEAXAN PO SCH (09:00)
[2024-10-27] MEDS: POLYETHYLENE GLYCOL 3350 17 GM PACKET PO PRN (10:01)
[2024-10-27] MEDS ORDERED: DESIPRAMINE 25 MG TABLET PO SCH (21:00)
[2024-10-27] MEDS: MULTIVIT,THER IRON,CA,FA & MIN 1 TABLET PO SCH (23:51)
[2024-10-27] MEDS: traZODone HCL 100 MG TABLET PO SCH (23:51)
[2024-10-27] MEDS: PRAMIPEXOLE 0.25 MG TABLET PO SCH (23:51)
[2024-10-27] MEDS: PROPRANOLOL 40 MG TABLET PO SCH (23:51)
[2024-10-27] MEDS: SUMAtriptan SUCCINATE 50 MG TABLET PO PRN (23:58)
[2024-10-28 06:11] LABS: Basophils # (Auto) 0.02 K/mcL (0.00-0.30); Basophils % (Auto) 0.4 % (0.0-2.0); Eosinophils % (Auto) 1.8 % (0.0-7.0); Hematocrit 37.2 % (34.1-44.9); Hemoglobin 12.4 g/dL (11.2-15.7); Lymphocytes # (Auto) 1.43 K/mcL (1.50-4.80); Lymphocytes % (Auto) 25.4 % (15.5-49.0); Mean Cell Volume 93.5 fL (80.0-100.0); Mean Corpuscular HGB Conc 33.3 g/dL (31.0-36.0); Mean Platelet Volume 10.4 fL (8.8-12.5); Monocytes # (Auto) 0.56 K/mcL (0.10-0.90); Monocytes % (Auto) 9.9 % (1.0-12.0); Neutrophils % (Auto) 62.3 % (38.0-78.0); Platelet Count 200 K/mcL (140-440); RBC 3.98 M/mcL (3.59-5.38); Red Cell Distribution Width 12.8 % (11.5-14.5); WBC 5.6 K/mcL (4.5-11.0)
[2024-10-28 06:48] LABS: ALT/SGPT 501 U/L (<40); AST/SGOT 266 U/L (<32); Albumin 3.5 gm/dL (3.2-5.2); Albumin/Globulin Ratio 2.1 (1.0-2.3); Alkaline Phosphatase 146 U/L (39-117); Bilirubin,Total 0.3 mg/dL (0.1-1.0); Blood Urea Nitrogen 7 mg/dL (8-23); Calcium 8.7 mg/dL (8.6-10.4); Carbon Dioxide 25 mmol/L (22-30); Chloride 108 mmol/L (96-108); Globulin 1.7 gm/dL (2.2-3.7); Glomerular Filtration Rate 74; Glucose 125 mg/dL (70-105); Sodium 142 mmol/L (133-145)
[2024-10-28] MEDS: OMEPRAZOLE 20 MG CAPSULE PO SCH (07:28)
[2024-10-28 08:06] LABS: Appearance,Urine Clear (Clear); Bilirubin,Urine Negative (Negative); Color,Urine Yellow; Glucose,Urine (UA) Negative (Negative); Ketones,Urine Negative (Negative); Leukocyte Esterase,Urine Negative /uL (Negative); Nitrate,Urine Negative (Negative); PH,Urine 6.5 (5.0-9.0); Protein,Urine Negative (Negative); Specific Gravity,Urine 1.015 (1.000-1.035); Urine Blood Negative ery/mcL (Negative); Urobilinogen,Urine Normal
[2024-10-28] MEDS: MAGNESIUM OXIDE 400 MG TABLET PO SCH (08:31)
[2024-10-28] MEDS: CYANOCOBALAMIN (VITAMIN B-12) 500 MCG TABLET PO SCH (08:31)
[2024-10-28] MEDS: VITAMIN D3 25 MCG TABLET PO SCH (08:31)
== END 2024-10-28 09:21 | disposition home or self-care (01) | DRG 392 ==
LOC: ED 14:56 → ICU 21:15
PROVIDERS: ADMIT Internal Medicine; ATTEND Internal Medicine

== ENCOUNTER 2024-11-08 20:56 | Observation (INO) ==
[2024-11-08] MEDS: PROMETHAZINE 50 MG/ML AMPUL IM ONE (23:05)
[2024-11-08] MEDS: ONDANSETRON 4 MG ODT TABLET SL ONE (23:34)
[2024-11-08] MEDS: HYDROmorphone 1 MG/ML SYRINGE IM ONE (23:35)
[2024-11-08 23:43] LABS: Basophils # (Auto) 0.02 K/mcL (0.00-0.30); Basophils % (Auto) 0.2 % (0.0-2.0); Eosinophils # (Auto) 0.12 K/mcL (0.00-0.70); Hematocrit 37.1 % (34.1-44.9); Hemoglobin 12.4 g/dL (11.2-15.7); Lymphocytes # (Auto) 1.47 K/mcL (1.50-4.80); Lymphocytes % (Auto) 12.7 % (15.5-49.0); Mean Cell Volume 92.8 fL (80.0-100.0); Mean Corpuscular HGB Conc 33.4 g/dL (31.0-36.0); Mean Platelet Volume 9.5 fL (8.8-12.5); Monocytes # (Auto) 0.94 K/mcL (0.10-0.90); Monocytes % (Auto) 8.1 % (1.0-12.0); Neutrophils % (Auto) 77.8 % (38.0-78.0); Platelet Count 250 K/mcL (140-440); Red Cell Distribution Width 13.1 % (11.5-14.5); WBC 11.6 K/mcL (4.5-11.0)
[2024-11-09] MEDS: 0.9 % SODIUM CHLORIDE 1,000 ML IV ONE (00:08)
[2024-11-09 00:17] LABS: ALT/SGPT 46 U/L (<40); AST/SGOT 30 U/L (<32); Albumin/Globulin Ratio 1.7 (1.0-2.3); Alkaline Phosphatase 121 U/L (39-117); Bilirubin,Total 0.3 mg/dL (0.1-1.0); Blood Urea Nitrogen 15 mg/dL (8-23); Calcium 9.1 mg/dL (8.6-10.4); Carbon Dioxide 24 mmol/L (22-30); Chloride 100 mmol/L (96-108); Globulin 2.3 gm/dL (2.2-3.7); Glomerular Filtration Rate 74; Glucose 102 mg/dL (70-105); Potassium 4.1 mmol/L (3.3-5.1); Sodium 137 mmol/L (133-145)
[2024-11-09] MEDS: HYDROmorphone 0.5 MG/0.5 ML SYRINGE IV ONE (00:26)
[2024-11-09] MEDS: DROPERIDOL 5 MG/2 ML VIAL IV ONE (01:44)
[2024-11-09] MEDS: 0.9 % SODIUM CHLORIDE 1,000 ML IV SCH (02:06)
[2024-11-09] MEDS: HYDROmorphone 0.5 MG/0.5 ML SYRINGE IV PRN ×2 (02:48→16:09)
[2024-11-09 06:23] LABS: Basophils # (Auto) 0.01 K/mcL (0.00-0.30); Basophils % (Auto) 0.2 % (0.0-2.0); Eosinophils # (Auto) 0.11 K/mcL (0.00-0.70); Eosinophils % (Auto) 1.8 % (0.0-7.0); Hematocrit 34.6 % (34.1-44.9); Hemoglobin 11.3 g/dL (11.2-15.7); Lymphocytes # (Auto) 1.77 K/mcL (1.50-4.80); Lymphocytes % (Auto) 29.4 % (15.5-49.0); Mean Cell Volume 95.1 fL (80.0-100.0); Mean Corpuscular HGB Conc 32.7 g/dL (31.0-36.0); Mean Platelet Volume 9.9 fL (8.8-12.5); Monocytes # (Auto) 0.59 K/mcL (0.10-0.90); Monocytes % (Auto) 9.8 % (1.0-12.0); Neutrophils % (Auto) 58.8 % (38.0-78.0); Platelet Count 229 K/mcL (140-440); RBC 3.64 M/mcL (3.59-5.38); Red Cell Distribution Width 13.3 % (11.5-14.5)
[2024-11-09 06:34] LABS: ALT/SGPT 62 U/L (<40); AST/SGOT 87 U/L (<32); Albumin 3.3 gm/dL (3.2-5.2); Albumin/Globulin Ratio 1.7 (1.0-2.3); Alkaline Phosphatase 125 U/L (39-117); Bilirubin,Direct < 0.2 mg/dL (0-0.3); Bilirubin,Total 0.3 mg/dL (0.1-1.0); Blood Urea Nitrogen 11 mg/dL (8-23); Calcium 8.4 mg/dL (8.6-10.4); Carbon Dioxide 25 mmol/L (22-30); Chloride 107 mmol/L (96-108); Globulin 1.9 gm/dL (2.2-3.7); Glomerular Filtration Rate 87; Glucose 97 mg/dL (70-105); Lactate Dehydrogenase 183 U/L (135-225); Phosphorous 4.3 mg/dL (2.5-4.5); Potassium 4.5 mmol/L (3.3-5.1); Sodium 141 mmol/L (133-145); Triglycerides 57 mg/dL (<150); Uric Acid 3.2 mg/dL (2.5-8.0)
[2024-11-09] MEDS: ONDANSETRON 4 MG/2 ML VIAL IV ONE (06:43)
[2024-11-09] MEDS: LIDOCAINE 5 GM CREAM.TOP TOPICAL ONE (06:44)
[2024-11-09] MEDS: HYDROmorphone 1 MG/ML SYRINGE IV ONE (06:44)
[2024-11-09] MEDS ORDERED: LORazepam 1 MG TABLET PO PRN (11:02)
[2024-11-09] MEDS: oxyCODONE IR 5 MG TABLET PO PRN (17:35)
[2024-11-09] MEDS: ONDANSETRON 4 MG/2 ML VIAL IV PRN (17:38)
[2024-11-09] MEDS: POLYETHYLENE GLYCOL 3350 17 GM PACKET PO PRN (20:15)
[2024-11-09] MEDS: traZODone HCL 100 MG TABLET PO SCH (20:15)
[2024-11-09] MEDS: ACETAMINOPHEN 325 MG TABLET PO PRN (20:16)
[2024-11-09] MEDS: PRAMIPEXOLE 0.25 MG TABLET PO SCH (20:16)
[2024-11-09] MEDS: PROPRANOLOL 40 MG TABLET PO SCH (20:16)
[2024-11-09] MEDS: SUMAtriptan SUCCINATE 50 MG TABLET PO PRN (21:14)
[2024-11-10] MEDS: LEVOTHYROXINE 50 MCG TABLET PO SCH (07:03)
[2024-11-10] MEDS: OMEPRAZOLE 20 MG CAPSULE PO SCH (07:03)
[2024-11-10 07:10] LABS: ALT/SGPT 43 U/L (<40); AST/SGOT 25 U/L (<32); Albumin 3.4 gm/dL (3.2-5.2); Albumin/Globulin Ratio 1.7 (1.0-2.3); Alkaline Phosphatase 110 U/L (39-117); Bilirubin,Direct < 0.2 mg/dL (0-0.3); Bilirubin,Total 0.2 mg/dL (0.1-1.0); Blood Urea Nitrogen 9 mg/dL (8-23); Carbon Dioxide 24 mmol/L (22-30); Chloride 107 mmol/L (96-108); Glomerular Filtration Rate 87; Glucose 98 mg/dL (70-105); Lactate Dehydrogenase 152 U/L (135-225); Phosphorous 4.6 mg/dL (2.5-4.5); Potassium 4.3 mmol/L (3.3-5.1); Sodium 141 mmol/L (133-145); Triglycerides 101 mg/dL (<150); Uric Acid 3.2 mg/dL (2.5-8.0)
[2024-11-10] MEDS ORDERED: SUMAtriptan SUCCINATE 50 MG TABLET PO PRN (08:31)
== END 2024-11-10 15:58 | disposition home or self-care (01) ==
LOC: MEDSUR 20:56 → ED 20:56 → MEDSUR 11-09 01:22
PROVIDERS: ADMIT Internal Medicine; ATTEND Internal Medicine

== ENCOUNTER 2025-10-04 07:13 | Inpatient (IN) ==
[2025-10-04] MEDS ORDERED: IOPAMIDOL 100 ML BOTTLE IV ONE (07:14)
[2025-10-04] MEDS: diphenhydrAMINE 50 MG/ML VIAL IV ONE ×2 (08:11→09:46)
[2025-10-04] MEDS: METOCLOPRAMIDE 10 MG/2 ML VIAL IV ONE (08:11)
[2025-10-04] MEDS: HYDROmorphone 0.5 MG/0.5 ML SYRINGE IV ONE (08:11)
[2025-10-04 08:15] LABS: Basophils # (Auto) 0.02 K/mcL (0.00-0.30); Basophils % (Auto) 0.3 % (0.0-2.0); Eosinophils # (Auto) 0.15 K/mcL (0.00-0.70); Eosinophils % (Auto) 2.1 % (0.0-7.0); Hematocrit 40.5 % (34.1-44.9); Hemoglobin 13.6 g/dL (11.2-15.7); Lymphocytes # (Auto) 1.41 K/mcL (1.50-4.80); Lymphocytes % (Auto) 19.9 % (15.5-49.0); Mean Corpuscular HGB Conc 33.6 g/dL (31.0-36.0); Monocytes # (Auto) 0.62 K/mcL (0.10-0.90); Monocytes % (Auto) 8.7 % (1.0-12.0); Neutrophils % (Auto) 69.0 % (38.0-78.0); Platelet Count 248 K/mcL (140-440); RBC 4.27 M/mcL (3.59-5.38); WBC 7.1 K/mcL (4.5-11.0)
[2025-10-04] MEDS: PROMETHAZINE 25 MG TABLET PO ONE (08:27)
[2025-10-04 08:28] LABS: ALT/SGPT 59 U/L (<40); AST/SGOT 100 U/L (<32); Albumin 3.9 gm/dL (3.2-5.2); Albumin/Globulin Ratio 1.8 (1.0-2.3); Alkaline Phosphatase 67 U/L (39-117); Anion Gap 9.0 (8.0-16.0); Bilirubin,Total 0.4 mg/dL (0.1-1.0); Blood Urea Nitrogen 20 mg/dL (8-23); Calcium 8.7 mg/dL (8.6-10.4); Carbon Dioxide 25 mmol/L (22-30); Chloride 102 mmol/L (96-108); Globulin 2.2 gm/dL (2.2-3.7); Glucose 108 mg/dL (70-105); Potassium 4.3 mmol/L (3.3-5.1); Sodium 136 mmol/L (133-145)
[2025-10-04] MEDS: 0.9 % SODIUM CHLORIDE 1,000 ML IV ONE (08:39)
[2025-10-04] MEDS ORDERED: ONDANSETRON 4 MG/2 ML VIAL IV PRN (15:00)
[2025-10-04] MEDS ORDERED: IPRATROPIUM/ALBUTEROL 3 ML AMPUL.NEB NEB PRN (15:00)
[2025-10-04] MEDS ORDERED: POLYETHYLENE GLYCOL 3350 17 GM PACKET PO PRN (15:00)
[2025-10-04] MEDS: 0.9 % SODIUM CHLORIDE 1,000 ML IV SCH (15:54)
[2025-10-04] MEDS: 0.9 % SODIUM CHLORIDE 10 ML SYRINGE IV SCH (15:54)
[2025-10-04] MEDS ORDERED: DICYCLOMINE 20 MG TABLET PO PRN (18:58)
[2025-10-04] MEDS ORDERED: SCOPOLAMINE 1 PATCH PATCH TOPICAL PRN (18:58)
[2025-10-04] MEDS ORDERED: LIDOCAINE VISCOUS 2% 15 ML UNIT DOSE CUP PO PRN (18:58)
[2025-10-04] MEDS ORDERED: ALBUTEROL SULFATE 60 PUFF INHALER INH PRN (19:40)
[2025-10-04] MEDS ORDERED: ACETAMINOPHEN 325 MG TABLET PO PRN (19:45)
[2025-10-04] MEDS: PRAMIPEXOLE 0.25 MG TABLET PO SCH (20:54)
[2025-10-04] MEDS: PROPRANOLOL 40 MG TABLET PO SCH (20:54)
[2025-10-04] MEDS: DOCUSATE SODIUM 100 MG CAPSULE PO SCH (20:55)
[2025-10-04] MEDS: OMEPRAZOLE 20 MG CAPSULE PO SCH (20:55)
[2025-10-04] MEDS: VIT A,C & E/LUTEIN/MINERALS TABLET PO SCH (20:57)
[2025-10-04] MEDS: SENNOSIDES 1 TABLET PO SCH (20:58)
[2025-10-04] MEDS: FLUCONAZOLE 100 MG TABLET PO SCH (21:37)
[2025-10-04] MEDS: FLUCONAZOLE 100 MG TABLET PO ONE (21:37)
[2025-10-05 06:17] LABS: Basophils # (Auto) 0.01 K/mcL (0.00-0.30); Basophils % (Auto) 0.2 % (0.0-2.0); Eosinophils # (Auto) 0.01 K/mcL (0.00-0.70); Eosinophils % (Auto) 0.2 % (0.0-7.0); Hematocrit 36.5 % (34.1-44.9); Hemoglobin 12.1 g/dL (11.2-15.7); Lymphocytes # (Auto) 1.21 K/mcL (1.50-4.80); Lymphocytes % (Auto) 18.3 % (15.5-49.0); Mean Corpuscular HGB Conc 33.2 g/dL (31.0-36.0); Monocytes # (Auto) 0.57 K/mcL (0.10-0.90); Monocytes % (Auto) 8.6 % (1.0-12.0); Neutrophils % (Auto) 72.5 % (38.0-78.0); Platelet Count 244 K/mcL (140-440); RBC 3.80 M/mcL (3.59-5.38); WBC 6.6 K/mcL (4.5-11.0)
[2025-10-05 06:33] LABS: ALT/SGPT 257 U/L (<40); AST/SGOT 160 U/L (<32); Albumin 3.5 gm/dL (3.2-5.2); Albumin/Globulin Ratio 1.8 (1.0-2.3); Alkaline Phosphatase 83 U/L (39-117); Anion Gap 9.0 (8.0-16.0); Bilirubin,Total 0.3 mg/dL (0.1-1.0); Blood Urea Nitrogen 12 mg/dL (8-23); Calcium 8.3 mg/dL (8.6-10.4); Carbon Dioxide 24 mmol/L (22-30); Chloride 106 mmol/L (96-108); Globulin 2.0 gm/dL (2.2-3.7); Glucose 117 mg/dL (70-105); Potassium 3.9 mmol/L (3.3-5.1); Sodium 139 mmol/L (133-145)
[2025-10-05] MEDS: VITAMIN D3 25 MCG TABLET PO SCH (08:51)
[2025-10-05] MEDS: LEVOTHYROXINE 50 MCG TABLET PO SCH (08:51)
[2025-10-05] MEDS: MAGNESIUM OXIDE 400 MG TABLET PO SCH (08:51)
[2025-10-05] MEDS: ENOXAPARIN 40 MG/0.4 ML SYRINGE SQ SCH (08:51)
[2025-10-05] MEDS: CYANOCOBALAMIN (VITAMIN B-12) 500 MCG TABLET PO SCH (08:51)
[2025-10-05] MEDS ORDERED: [UNRECOGNIZED DRUG - OTHER] PO SCH (09:00)
[2025-10-05] MEDS ORDERED: VIT C E ZN COPPR LUTEIN ZEAXAN PO SCH (09:00)
[2025-10-05] MEDS ORDERED: NITROGLYCERIN 0.4 MG TAB.SUBL SL PRN (10:43)
[2025-10-05] MEDS: PSEUDOEPHEDRINE 30 MG TABLET PO PRN (11:41)
== END 2025-10-05 17:00 | disposition home or self-care (01) | DRG 440 ==
LOC: ED 07:13 → MEDSUR 14:57
PROVIDERS: ADMIT Internal Medicine; ATTEND Internal Medicine